=== PATIENT | female | born 1970 ===

== ENCOUNTER → 2020-08-31 | Day surgery (SDC) | payer OTHER ==
[~2020-08-31] MED LIST: AVAPRO300 MG PO; NORVASC2.5 M1 PO
== END | disposition home or self-care (01) ==
LOC: ADM 08-25 10:00 → CIR.AMB 08:30 → LAB 10:00 → CIR.AMB 16:00
PROVIDERS: ATTEND Colon & Rectal Surgery
DX: K64.4 Residual hemorrhoidal skin tags (principal); K64.8 Other hemorrhoids; N81.6 Rectocele; Z20.822 Contact with and (suspected) exposure to COVID-19